=== PATIENT | female | born 1950 | race African-American/Black ===

== ENCOUNTER → 2020-08-22 | Outpatient (CLI) | payer OTHER ==
[~2020-08-22] VITALS: Ht 165.1 cm; Wt 60.3 kg
[2020-08-22] VITALS (8 sets, daily range): BP systolic 101–159; BP diastolic 60–83
[~2020-08-22] MED LIST: ADULT LOW DOSE81 MG; ASA81BEC PO; CARVEDILOL25 MG; DICLOFENAC SOD2.5 ML OPHTHALMIC; GLUCOPHAGE500 MG; GLUCOTROL XL10 MG; GLUCOTROL5 MG; HYDRALAZINE 2525 M1; HYDRALAZINE 5050 M1; KAPVAY0.1 MG; LIPITOR10 MG PO; MAGNESIUM400 MG PO; NORVASC10 MG; OCUFLOX5 ML OPHTHALMIC; PLAVIX 75 MG TA75 MG PO; PRED FORTE 1% EY5 M1 OPHTHALMIC; PREDNISONE 5 MG5 M1 PO; PRINIVIL10 MG PO; PROTONIX40 M2 PO; SIMVASTATIN20 MG; TACROLIMUS1 MG PO; VITAMIN D325 MC3 PO; ZOFRAN ODT4 MG PO
[2020-08-22 09:33] LABS: HEMOGLOBIN 8.6 gm/dL (12.0-15.0); RDW 22.6 % (10.5-14.5)
[2020-08-22 09:34] LABS: HEMATOCRIT 27.4 % (37.0-47.0); MCH 28.4 pg (26.0-34.0); MCHC 31.4 g/dL (28.0-37.0); MCV 90.7 fL (80.0-100.0); RBC 3.02 mil/uL (4.20-5.00)
[2020-08-22 09:44] LABS: CALCIUM 8.7 mg/dL (8.5-10.1); CREATININE 1.2 mg/dL (0.6-1.0)
--- NOTE | 2020-08-22 12:15 | NUR ---
PLAVIX 600MG GIVEN PO BY CARLOS DILL RN ON ARRIVAL TO ROOM IN CV HOLDING
--- NOTE | 2020-08-22 14:11 | NUR ---
D/C INSTRUCTION SHEET FAXED TO NURSE CUEVAS AT [facility] AT HER REQUEST. COPY SENT WITH PATIENT ALONG WITH STENT CARDS AND MYNX INFO SHEET.
== END | disposition home or self-care (01) ==
LOC: CATH 08:17
PROVIDERS: ATTEND Nuclear Medicine Nuclear Cardiology
DX: I70.238 Atherosclerosis of native arteries of right leg with ulceration of other part of lower leg (principal); L97.919 Non-pressure chronic ulcer of unspecified part of right lower leg with unspecified severity; I70.1 Atherosclerosis of renal artery; I11.0 Hypertensive heart disease with heart failure; I50.9 Heart failure, unspecified; E11.9 Type 2 diabetes mellitus without complications; E78.5 Hyperlipidemia, unspecified; K21.9 Gastro-esophageal reflux disease without esophagitis; N19 Unspecified kidney failure; Z98.890 Other specified postprocedural states; Z79.4 Long term (current) use of insulin; Z79.899 Other long term (current) drug therapy; Z95.0 Presence of cardiac pacemaker; Z86.73 Personal history of transient ischemic attack (TIA), and cerebral infarction without residual deficits; Z91.041 Radiographic dye allergy status